=== PATIENT | female | born 1995 ===

== ENCOUNTER 2023-07-24 13:24 | Inpatient (IN) | payer OTHER ==
[2023-07-24] VITALS (11 sets, daily range): BP systolic 114–134; BP diastolic 64–84; PULSE 60–92; TEMP 97.4–98.6
[2023-07-24] MEDS ORDERED: PROTONIX 40MG T40 MG PO (15:04)
[2023-07-24] MEDS ORDERED: TYLENOL 500MG500 MG PO (15:08)
--- NOTE | 2023-07-24 16:01 | NUR ---
1230-ER PHYSICIAN FROM [place] CALLED STATING PATIENT HAD BEEN ACCEPTED BY DR. ADAMS FOR AN ERCP THIS AFTERNOON. DUE TO NO GI COVERAGE, [facility] WANTS HOSPITALIST TO ADMIT. CALL TRANSFERRED TO DR. ELLER. DR. ELLER ACCEPTED PATIENT INPATIENT STATUS.
--- NOTE | 2023-07-24 18:06 | NUR ---
PT BROUGHT UP BY PACU AT 1710 PATIENT ALERT AND ORIENTED. VITAL SIGNS STABLE. PT DENIES PAIN AT THIS TIME. WILL CONTINUE TO MONITOR. PLAN IS TO HAVE HER GALLBLADDER REMOVED TOMORROW MORNING.CALL LIGHT WITHIN REACH PT MOTHER AT BEDSIDE.
[2023-07-25] VITALS (10 sets, daily range): BP systolic 120–151; BP diastolic 66–91; PULSE 67–86; TEMP 97.7–98.6
[2023-07-25 05:54] LABS: BASO % 0.5 % (0.0-2.0); EOS # 0.1 K/mm3 (0.0-0.7); EOS % 0.6 % (0.0-4.0); GRAN # 5.2 K/mm3 (1.4-6.5); GRAN % 64.2 % (42.2-75.2); HEMATOCRIT 36.5 % (37.0-47.0); HEMOGLOBIN 12.1 g/dl (12.5-16.0); LYMPH # 1.9 K/mm3 (1.2-3.4); LYMPH % 23.5 % (20.0-51.0); MEAN CELL VOLUME 87 fl (80.0-100.0); MEAN CORPUSCULAR HEMOGLOBIN 29 pg (27-31); MEAN CORPUSCULAR HGB CONC 33 g/dl (33.0-37.0); MEAN PLATELET VOLUME 10.5 fl (7.4-10.4); MONO # 0.9 K/mm3 (0.1-0.6); MONO % 10.8 % (1.7-9.3); PLATELET COUNT 184 K/mm3 (130-400); RED BLOOD COUNT 4.22 M/mm3 (4.10-5.30)
[2023-07-25 06:19] LABS: ALBUMIN 3.2 gm/dL (3.5-5.0); BILIRUBIN,TOTAL 1.7 mg/dL (0.2-1.2); CALCIUM 8.7 mg/dL (8.4-10.2); CREATININE, serum 0.75 mg/dL (0.57-1.11); MAGNESIUM 1.9 mg/dL (1.6-2.6); POTASSIUM 3.9 mmol/L (3.5-4.5); TOTAL PROTEIN 6.3 gm/dL (6.2-8.1)
--- NOTE | 2023-07-25 08:00 | NUR ---
PT RESTING IN BED PAIN 1/10 IN ABDOMEN. PT UP TO BATHROOM WITH STEADY GAIT. CONTINUE TO STRAIN URINE. BOWEL SOUNDS ACTIVE, ABDOMEN TENDER TO TOUCH. NO NEEDS AT THIS TIME. WILL CONTINUE TO MONITOR.
--- NOTE | 2023-07-25 12:05 | NUR ---
PT UP TO FLOOR AT THIS TIME. PT COMPLAIING OF PAIN 5/10 IN ABDOMEN AND NAUSEA. VITALS STABLE, A.O X4, 3 LAP SITES WITH BANDAIDS CLEAN, DRY, AND INTACT.
[2023-07-25] MEDS ORDERED: ZOFRAN ODT4 MG PO (14:26)
[2023-07-25] MEDS ORDERED: ROXICODONE 55 MG/TAB PO (14:26)
--- NOTE | 2023-07-25 15:25 | NUR ---
PT AND FAMILY PROVIDED DISCHARGE INSTRUCTIONS. DISCUSSED FOLLOW UP APPOINTMENTS, NEW MEDICATIONS, AND SIGNS OF INFECTIONS. NO QUESTIONS AT THIS TIME. IV REMOVED. PT AND BELONGINGS ESCORTED OUT OF BUILDING VIA WHEELCHAIR AT THIS TIME.
== END 2023-07-25 15:15 | disposition home or self-care (01) | DRG 419 ==
LOC: SURG 13:24
PROVIDERS: Surgery; ADMIT Internal Medicine
PROC: 0FC98ZZ Extirpation of Matter from Common Bile Duct, Via Natural or Artificial Opening Endoscopic (ICD-10-PCS; 2023-07-24)
PROC: 0FT44ZZ Resection of Gallbladder, Percutaneous Endoscopic Approach (ICD-10-PCS; principal; 2023-07-25 10:30)
DX: K80.67 Calculus of gallbladder and bile duct with acute and chronic cholecystitis with obstruction (principal); K21.9 Gastro-esophageal reflux disease without esophagitis; K83.8 Other specified diseases of biliary tract
CPT/HCPCS: C1769; J0330; J0690; J1100; J1885; J2250; J2270; J2405; J2550; J2704; J3010; J7030; Q9967